=== PATIENT | female | born 1990 | race Two or more races ===

== ENCOUNTER 2016-10-25 18:07 | Emergency (ER) | payer MEDICAID ==
[2016-10-25 18:56] LABS: % BASOPHILS 0.7 % (0.0-2.0); % EOSINOPHILS 1.5 % (0.0-5.0); % LYMPHOCYTES 30.7 % (20.0-50.0); % MONOCYTES 8.1 % (2.0-10.0); HEMOGLOBIN 13.6 gm/dL (11.7-15.5); MEAN CELL VOLUME 89.8 fl (81-100); MEAN CORPUSCULAR HEMOGLOBIN 30.5 pg (27.0-31.0); MEAN PLATELET VOLUME 9.5 fl; NEUTROPHILE ABSOLUTE 4.7 Th/cmm (1.8-8.0); PLATELET COUNT 300 Th/cmm (150-400); RED BLOOD COUNT 4.46 Mil/cmm (3.80-5.10); RED CELL DISTRIBUTION WIDTH 12.5 % (11.5-20.0); WHITE BLOOD COUNT 8.1 Th/cmm (4.8-10.8)
[2016-10-25 19:00] LABS: URINE COLOR PALE YELLOW
[2016-10-25 19:01] LABS: URINE BILIRUBIN NEGATIVE (NEGATIVE); URINE BLOOD TRACE (NEGATIVE); URINE GLUCOSE (UA) NEGATIVE (NEGATIVE); URINE KETONE NEGATIVE (NEGATIVE); URINE PH 5.5; URINE PROTEIN NEGATIVE (NEGATIVE); URINE UROBILINOGEN 0.2 E.U./dL (0.2 - 1.0)
[2016-10-25 19:02] LABS: URINE BACTERIA FEW /hpf (NONE SEEN); URINE EPITHELIAL CELLS OCCASIONAL /lpf (FEW); URINE RBC 0-1 /hpf (0-5); URINE WBC 0-2 /hpf (0-5)
[2016-10-25 19:12] LABS: CHOLESTEROL 189 mg/dL (<200); TRIGLYCERIDES 126 mg/dL (<150)
[2016-10-25 19:14] LABS: ALB/GLOB RATIO 1.2 (1.0-1.8); ALKALINE PHOSPHATASE 52 U/L (34-104); ANION GAP 10.3 (7.0-16.0); BILIRUBIN,TOTAL 0.4 mg/dL (0.3-1.0); BUN - UREA NITROGEN 11 mg/dL (7-25); BUN/CREATININE RATIO 15.7; CALCIUM SERUM 9.2 mg/dL (8.6-10.3); CARBON DIOXIDE 23.4 mEq/L (21.0-31.0); CHLORIDE 106 mEq/L (98-107); CREATININE - SERUM 0.7 mg/dL (0.6-1.2); GLUCOSE 96 mg/dL (70-105); POTASSIUM SERUM 3.7 mEq/L (3.5-5.1); SGOT 15 U/L (13-39); SGPT/ALT 29 U/L (7-52); SODIUM SERUM 136 mEq/L (136-145)
--- NOTE | 2016-10-25 19:26 | ED Physician Chart ---
Chief Complaint/HPI - Patient Information Date Seen:: 10/25/16 Time Seen:: 18:20 Chief Complaint:: HEADACHE History of Present Illness:: THIS IS A 25 YO FEMALE WITH A SUDDEN ONSET OF A HEADACHE TODAY. THE PAIN IS ON THE LEFT SIDE AND RADIATES TO THE BACK OF THE HEAD. SHE DENIES ANY COUGH OR COLD SYMPTOMS. SHE STATES THAT SHE HAS HAD HEADACHES LIKE THIS BEFORE. 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 SHE DENIES NAUSEA AND VOMITING. SHE DENIES HAVING ANY FEVER. SHE DENIES SMOKING, DRINKING AND DRUG ABUSE. SHE DENIES AND PAINFUL URINATION. Allergies:: Allergies Allergy/AdvReac Type Severity Reaction Status Date / Time No Known Allergies Allergy Verified 10/25/16 18:20 Vitals:: Vital Signs - 8 hr 10/25/16 18:15 Temp 98.9 F HR 61 RR 16 BP 139/75 O2 Sat % 98 Historian:: Patient Review:: Nurse's Note Reviewed Review of Systems - Review of Systems General/Constitutional: No fever, No chills, No weight loss, No weakness, No diaphoresis, No edema, No loss of appetite Skin: No skin lesions, No rash, No bruising Head: No headache, No light-headedness Eyes: No loss of vision, No pain, No diplopia ENT: No earache, No nasal drainage, No sore throat, No tinnitus Neck: No neck pain, No swelling, No thyromegaly, No stiffness, No mass noted Cardio Vascular: No chest pain, No palpitations, No PND, No orthopnea, No edema Pulmonary: No SOB, No cough, No sputum, No wheezing GI: No nausea, No vomiting, No diarrhea, No pain, No melena, No hematochezia, No constipation, No hematemesis G/U: No dysuria, No frequency, No hematuria Musculoskeletal: No bone or joint pain, No back pain, No muscle pain Endocrine: No polyuria, No polydipsia Psychiatric: No prior psych history, No depression, No anxiety, No suicidal ideation Hematopoietic: No bruising, No lymphadenopathy Allergic/Immuno: No urticaria, No angioedema Neurological: No syncope, No focal symptoms, No weakness, No paresthesia, Headache, No seizure, No dizziness, No confusion, No vertigo Past Medical History - Past Medical History Obtainable: Yes Past Medical History: No significant medical hx, Other (MONTILLA'S PALSY) Family History: Diabetes Melitus (MOTHER) Surgical History: None Psychiatricy History: None Medication: Reviewed Family Medical History - Family Member Mother Ethnicity: Living Status: Still Living Hx Family Hypertension: Yes Father Hx Family Diabetes: Yes Physical Exam - Physical Examination General/Constitutional: Awake, Well-developed, well-nourished, Alert, No distress, GCS 15, Non-toxic appearing, Ambulatory Head: Atraumatic Eyes: Lids, conjuctiva normal, PERRL, EOMI Other Eyes comments:: MILD STRABISMUS RIGHT EYE Skin: Nl inspection, No rash, No skin lesions, No ecchymosis, Well hydrated, No lymphadenopathy ENMT: External ears, nose nl, Nasal exam nl, Lips, teeth, gums nl Neck: Nontender, Full ROM w/o pain, No JVD, No nuchal rigidity, No bruit, No mass, No stridor Respiratory: Nl effort/Exclusion, Clear to Auscultation, No Wheeze/Rhonchi/Rales Cardio Vascular: RRR, No murmur, gallop, rubs, NL S1 S2 GI: No tenderness/rebounding/guarding, No organomegaly, No hernia, Normal BS's, Nondistended, No mass/bruits, No McBurney tenderness : No CVA tenderness Extremities: No tenderness or effusion, Full ROM, normal strength in all extremities, No edema, Normal digits & nails Neuro/Psych: Alert/oriented, DTR's symmetric, Normal sensory exam, Normal motor strength, Judgement/insight normal, Mood normal, Normal gait, No focal deficits Misc: normal gait, Normal back, No paraspinal tenderness Labs/Radiology/EKG Results - Lab Results Results: Laboratory Tests 10/25/16 10/25/16 10/25/16 18:19 18:19 18:42 WBC RBC Hgb Hct MCV MCH MCHC Differential RDW Plt Count MPV Neutrophils % Lymphocytes % Monocytes % Eosinophils % Basophils % PTT (Actin FS) 28.2 Sodium Potassium Chloride Carbon Dioxide Anion Gap BUN Creatinine Est GFR ( Amer) Est GFR (Non-Af Amer) BUN/Creatinine Ratio Glucose Calcium Total Bilirubin AST ALT Alkaline Phosphatase Troponin I Total Protein Albumin Globulin Albumin/Globulin Ratio Triglycerides Cholesterol LDL Cholesterol Direct HDL Cholesterol Urine Source CLEAN C Urine Color PALE YELLOW Urine Clarity CLEAR Urine pH 5.5 Ur Specific [place] Urine Protein NEGATIVE Urine Glucose (UA) NEGATIVE Urine Ketones NEGATIVE Urine Blood TRACE Urine Nitrate NEGATIVE Urine Bilirubin NEGATIVE Urine Urobilinogen 0.2 Ur Leukocyte Esterase NEGATIVE Urine RBC 0-1 Urine WBC 0-2 Ur Epithelial Cells OCCASIONAL Urine Bacteria FEW Urine Test NEGATIVE 10/25/16 10/25/16 10/25/16 18:42 18:42 18:42 WBC 8.1 RBC 4.46 Hgb 13.6 Hct 40.0 MCV 89.8 MCH 30.5 MCHC Differential 34.0 RDW 12.5 Plt Count 300 MPV 9.5 Neutrophils % 59.0 Lymphocytes % 30.7 Monocytes % 8.1 Eosinophils % 1.5 Basophils % 0.7 PTT (Actin FS) Sodium 136 Potassium 3.7 Chloride 106 Carbon Dioxide 23.4 Anion Gap 10.3 BUN 11 Creatinine 0.7 Est GFR ( Amer) > 60.0 Est GFR (Non-Af Amer) > 60.0 BUN/Creatinine Ratio 15.7 Glucose 96 Calcium 9.2 Total Bilirubin 0.4 AST 15 ALT 29 Alkaline Phosphatase 52 Troponin I Total Protein 7.5 Albumin 4.1 Globulin 3.4 Albumin/Globulin Ratio 1.2 Triglycerides 126 Cholesterol 189 LDL Cholesterol Direct 139 HDL Cholesterol 41 Urine Source Urine Color Urine Clarity Urine pH Ur Specific [place] Urine Protein Urine Glucose (UA) Urine Ketones Urine Blood Urine Nitrate Urine Bilirubin Urine Urobilinogen Ur Leukocyte Esterase Urine RBC Urine WBC Ur Epithelial Cells Urine Bacteria Urine Test 10/25/16 18:42 WBC RBC Hgb Hct MCV MCH MCHC Differential RDW Plt Count MPV Neutrophils % Lymphocytes % Monocytes % Eosinophils % Basophils % PTT (Actin FS) Sodium Potassium Chloride Carbon Dioxide Anion Gap BUN Creatinine Est GFR ( Amer) Est GFR (Non-Af Amer) BUN/Creatinine Ratio Glucose Calcium Total Bilirubin AST ALT Alkaline Phosphatase Troponin I < 0.01 L Total Protein Albumin Globulin Albumin/Globulin Ratio Triglycerides Cholesterol LDL Cholesterol Direct HDL Cholesterol Urine Source Urine Color Urine Clarity Urine pH Ur Specific [place] Urine Protein Urine Glucose (UA) Urine Ketones Urine Blood Urine Nitrate Urine Bilirubin Urine Urobilinogen Ur Leukocyte Esterase Urine RBC Urine WBC Ur Epithelial Cells Urine Bacteria Urine Test - Radiology Results Results: CT SCAN OF THE HEAD = NEG ACUTE DISEASE ED Septic Shock - . Is Septic Shock (SBP<90, OR Lactate>4 mmol\L) present?: No - <6hrs of presentation: Vital Signs: Vital Signs - 8 hr 10/25/16 18:15 Temp 98.9 F HR 61 RR 16 BP 139/75 O2 Sat % 98 Reassessment (Disposition) - Reassessment Reassessment Condition:: Improved - Diagnosis Diagnosis:: HEADACHE - Aftercare/Follow up Instructions Aftercare/Follow-Up Instructions:: Counseled pt regarding lab results/diagnosis & need follow up, Refer to Discharge Instructions, Counseled pt & family regarding lab results/diagnosis & need follow up Notes:: SHE WAS REFERRED TO HER PMD OR TO THE [facility] FOR A MORE DETAIL NEUROLOGICAL EVALUATION. Medication Prescribed:: GABAPENTIN - Patient Disposition Discharge/Transfer:: Home Condition at Disposition:: Improved ED Discharge Plan - Patient Disposition Admit/Discharge/Transfer: PT DISCHARGED HOME Condition at Disposition: Improved
--- NOTE | 2016-10-26 08:50 | Diagnostic Imaging Report ---
CT scan of the brain without contrast History: Headache Total DLP equals 505 CTDI equals 31.4 Axial sections were obtained from the base of the skull to the vertex. There is a normal ventricular system size. No focal parenchymal lesions are seen. No evidence of any mass effect or shift of midline structures. No extra-axial masses or abnormal fluid collections. Impression: No acute abnormalities
== END 2016-10-25 19:30 | disposition home or self-care (01) ==
LOC: ER 18:07
DX: R51 Headache (principal)
CPT/HCPCS: 99285; 70450; 96372; 84484; 36415; 84443; 86592; 85025; 85730; 81001; 81025; 80053; 80061; J1885

== ENCOUNTER 2017-04-03 13:41 | Emergency (ER) | payer MEDICAID ==
--- NOTE | 2017-04-03 14:15 | ED Physician Chart ---
ED Chief Complaint/HPI - Patient Information Date Seen:: 04/03/17 Time Seen:: 13:54 Chief Complaint:: Abdominal pain for 4 days. History of Present Illness:: Brought in by private auto because of abdominal pain for 4 days. Pain is localized at epigastric region, characterized as sharp and intermittent. Pain can be aggravated with body movement and improved by lying down still. No fever. No N/V. Pt has had nonbloody loose stool with last BM at about 1 pm today. No melena or hematochezia. No lightheadedness. No recent travel, antibiotic use, or ingestion of contaminated food or liquid. Pt admits caffeine use and greasy/spicy food use. No ASA, NSAID's, tobacco or alcohol use. Allergies:: Allergies Allergy/AdvReac Type Severity Reaction Status Date / Time No Known Allergies Allergy Verified 10/25/16 18:20 Vitals:: Vital Signs - 8 hr 04/03/17 13:44 Temp 97.9 F HR 96 RR 16 BP 137/99 O2 Sat % 100 Historian:: Patient Family MD/PCP:: Unknown LMP:: 03/21/17 Review:: Nurse's Note Reviewed ED Review of Systems - Review of Systems General/Constitutional: No fever, No chills, No weight loss, No weakness, No diaphoresis, No edema, No loss of appetite Skin: No skin lesions, No rash, No bruising Head: No headache, No light-headedness Eyes: Acuity change, No loss of vision, No pain, No diplopia ENT: No earache, No nasal drainage, No sore throat Neck: No neck pain, No swelling, No thyromegaly, No stiffness, No mass noted Cardio Vascular: No chest pain, No palpitations, No edema Pulmonary: No SOB, No cough, No wheezing GI: No nausea, No vomiting, Diarrhea, Pain, No melena, No hematochezia, No hematemesis G/U: No dysuria, No frequency, No hematuria Public Relations Counselor: No vaginal discharge, No abnormal vaginal bleed Musculoskeletal: No bone or joint pain, No back pain, No muscle pain Endocrine: No polyuria, No polydipsia Psychiatric: No prior psych history Hematopoietic: No bruising, No lymphadenopathy Allergic/Immuno: No urticaria, No angioedema Neurological: No syncope, No focal symptoms, No weakness, No paresthesia, No headache, No dizziness, No confusion ED Past Medical History - Past Medical History Past Medical History: No significant medical hx Family History: Diabetes Melitus (father), HTN (mother) Social History: Non Smoker, No Alcohol, No Drug Use, Single, Lives With Parents , Employed Employment:: caregiver. Surgical History: None Psychiatricy History: None Medication: Reviewed Family Medical History - Family Member Mother Ethnicity: Living Status: Still Living Hx Family Hypertension: Yes Father Hx Family Diabetes: Yes ED Physical Exam - Physical Examination General/Constitutional: Awake, Well-developed, well-nourished, Alert, No distress, GCS 15, Non-toxic appearing, Ambulatory Other Gen/Cons comments:: Breathes comfortably, speaks clearly, ambulates without difficulty, and ambulates without difficulty. Head: Atraumatic Eyes: Lids, conjuctiva normal, PERRL, EOMI Other Eyes comments:: Anicteric sclera. Skin: Nl inspection, No rash, No skin lesions, No ecchymosis, Well hydrated, No lymphadenopathy ENMT: External ears, nose nl, Nasal exam nl, Lips, teeth, gums nl, Oropharynx nl Neck: Nontender, Full ROM w/o pain, No nuchal rigidity, No mass, No stridor Respiratory: Nl effort/Exclusion, Clear to Auscultation, No Wheeze/Rhonchi/Rales Cardio Vascular: RRR, No murmur, gallop, rubs GI: No organomegaly, No hernia, Normal BS's, Nondistended, No mass/bruits, No McBurney tenderness, Rectum exam nl (performed in the presence of female nurse Patricia. No mass. Stool is yellow.) Other GI comments:: Mild tenderness at epigastric region. No R/G. Negative Marr's sign, Ricardo's and Kee Pedroza's signs. : No CVA tenderness Extremities: No tenderness or effusion, Full ROM, normal strength in all extremities, No edema, Normal digits & nails Neuro/Psych: Alert/oriented (oriented x 3.), Judgement/insight normal, Mood normal, Normal gait, No focal deficits ED Labs/Radiology/EKG Results - Lab Results Results: Laboratory Tests 04/03/17 04/03/17 04/03/17 14:30 14:30 14:30 WBC 8.1 RBC 4.93 Hgb 15.0 Hct 44.5 D MCV 90.3 MCH 30.3 MCHC Differential 33.6 RDW 12.0 Plt Count 253 MPV 8.9 Neutrophils % 82.9 H Lymphocytes % 10.8 L Monocytes % 5.2 Eosinophils % 0.3 Basophils % 0.8 PT 11.1 INR 1.07 PTT (Actin FS) 27.7 Sodium 132 L Potassium 4.0 Chloride 104 Carbon Dioxide 25.6 Anion Gap 6.4 L BUN 11 Creatinine 0.7 Est GFR ( Amer) > 60.0 Est GFR (Non-Af Amer) > 60.0 BUN/Creatinine Ratio 15.7 Glucose 94 Calcium 9.0 Total Bilirubin 0.3 AST 18 ALT 18 Alkaline Phosphatase 53 Total Protein 7.3 Albumin 4.0 Globulin 3.3 Albumin/Globulin Ratio 1.2 Amylase 55 Lipase 21 Urine Source Urine Color Urine Clarity Urine pH Ur Specific [place] Urine Protein Urine Glucose (UA) Urine Ketones Urine Blood Urine Nitrate Urine Bilirubin Urine Urobilinogen Ur Leukocyte Esterase Urine RBC Urine WBC Ur Epithelial Cells Urine Bacteria Urine Test 04/03/17 04/03/17 15:35 15:35 WBC RBC Hgb Hct MCV MCH MCHC Differential RDW Plt Count MPV Neutrophils % Lymphocytes % Monocytes % Eosinophils % Basophils % PT INR PTT (Actin FS) Sodium Potassium Chloride Carbon Dioxide Anion Gap BUN Creatinine Est GFR ( Amer) Est GFR (Non-Af Amer) BUN/Creatinine Ratio Glucose Calcium Total Bilirubin AST ALT Alkaline Phosphatase Total Protein Albumin Globulin Albumin/Globulin Ratio Amylase Lipase Urine Source [place] Urine Color YELLOW Urine Clarity HAZY Urine pH 6.0 Ur Specific [place] 1.025 Urine Protein NEGATIVE Urine Glucose (UA) NEGATIVE Urine Ketones NEGATIVE Urine Blood SMALL H Urine Nitrate NEGATIVE Urine Bilirubin NEGATIVE Urine Urobilinogen 0.2 Ur Leukocyte Esterase MODERATE H Urine RBC 2-5 Urine WBC 10-25 H Ur Epithelial Cells MODERATE Urine Bacteria MODERATE Urine Test NEGATIVE Laboratory Last Values WBC 8.1 Th/cmm (4.8-10.8) 04/03/17 14:30 RBC 4.93 Mil/cmm (3.80-5.10) 04/03/17 14:30 Hgb 15.0 gm/dL (12-16) 04/03/17 14:30 Hct 44.5 % (41.0-60) D 04/03/17 14:30 MCV 90.3 fl (81-100) 04/03/17 14:30 MCH 30.3 pg (27.0-31.0) 04/03/17 14:30 MCHC Differential 33.6 pg (28.0-36.0) 04/03/17 14:30 RDW 12.0 % (11.5-20.0) 04/03/17 14:30 Plt Count 253 Th/cmm (150-400) 04/03/17 14:30 MPV 8.9 fl 04/03/17 14:30 Neutrophils % 82.9 % (40.0-80.0) H 04/03/17 14:30 Lymphocytes % 10.8 % (20.0-50.0) L 04/03/17 14:30 Monocytes % 5.2 % (2.0-10.0) 04/03/17 14:30 Eosinophils % 0.3 % (0.0-5.0) 04/03/17 14:30 Basophils % 0.8 % (0.0-2.0) 04/03/17 14:30 PT 11.1 SECONDS (9.5-11.5) 04/03/17 14:30 INR 1.07 (0.5-1.4) 04/03/17 14:30 PTT (Actin FS) 27.7 SECONDS (26.0-38.0) 04/03/17 14:30 Sodium 132 mEq/L (136-145) L 04/03/17 14:30 Potassium 4.0 mEq/L (3.5-5.1) 04/03/17 14:30 Chloride 104 mEq/L (98-107) 04/03/17 14:30 Carbon Dioxide 25.6 mEq/L (21.0-31.0) 04/03/17 14:30 Anion Gap 6.4 (7.0-16.0) L 04/03/17 14:30 BUN 11 mg/dL (7-25) 04/03/17 14:30 Creatinine 0.7 mg/dL (0.6-1.2) 04/03/17 14:30 Est GFR ( Amer) > 60.0 ml/min (>90) 04/03/17 14:30 Est GFR (Non-Af Amer) > 60.0 ml/min 04/03/17 14:30 BUN/Creatinine Ratio 15.7 04/03/17 14:30 Glucose 94 mg/dL (70-105) 04/03/17 14:30 Calcium 9.0 mg/dL (8.6-10.3) 04/03/17 14:30 Total Bilirubin 0.3 mg/dL (0.3-1.0) 04/03/17 14:30 AST 18 U/L (13-39) 04/03/17 14:30 ALT 18 U/L (7-52) 04/03/17 14:30 Alkaline Phosphatase 53 U/L (34-104) 04/03/17 14:30 Total Protein 7.3 gm/dL (6.0-8.3) 04/03/17 14:30 Albumin 4.0 gm/dL (3.7-5.3) 04/03/17 14:30 Globulin 3.3 gm/dL 04/03/17 14:30 Albumin/Globulin Ratio 1.2 (1.0-1.8) 04/03/17 14:30 Amylase 55 U/L (29-103) 04/03/17 14:30 Lipase 21 U/L (11-82) 04/03/17 14:30 Urine Source [place] 04/03/17 15:35 Urine Color YELLOW 04/03/17 15:35 Urine Clarity HAZY (CLEAR) 04/03/17 15:35 Urine pH 6.0 (4.6 - 8.0) 04/03/17 15:35 Ur Specific [place] 1.025 (1.005-1.030) 04/03/17 15:35 Urine Protein NEGATIVE mg/dL (NEGATIVE) 04/03/17 15:35 Urine Glucose (UA) NEGATIVE mg/dL (NEGATIVE) 04/03/17 15:35 Urine Ketones NEGATIVE mg/dL (NEGATIVE) 04/03/17 15:35 Urine Blood SMALL (NEGATIVE) H 04/03/17 15:35 Urine Nitrate NEGATIVE (NEGATIVE) 04/03/17 15:35 Urine Bilirubin NEGATIVE (NEGATIVE) 04/03/17 15:35 Urine Urobilinogen 0.2 E.U./dL (0.2 - 1.0) 04/03/17 15:35 Ur Leukocyte Esterase MODERATE (NEGATIVE) H 04/03/17 15:35 Urine RBC 2-5 /hpf (0-5) 04/03/17 15:35 Urine WBC 10-25 /hpf (0-5) H 04/03/17 15:35 Ur Epithelial Cells MODERATE /lpf (FEW) 04/03/17 15:35 Urine Bacteria MODERATE /hpf (NONE SEEN) 04/03/17 15:35 Urine Test NEGATIVE 04/03/17 15:35 ED Septic Shock - . Is Septic Shock (SBP<90, OR Lactate>4 mmol\L) present?: No - <6hrs of presentation: Vital Signs: Vital Signs - 8 hr 04/03/17 13:44 Temp 97.9 F HR 96 RR 16 BP 137/99 O2 Sat % 100 ED Reassessment (Disposition) - Reassessment Reassessment:: 1720 Pt has been repeatedly evaluated. Pt remains stable. No new complaint or findings. 0 Pt feels much better after IV hydration and medications given. Pt denies any definite abdominal pain. No lightheadedness. No N/V. Her loose stool has subsided. Lab findings have been reviewed with pt. Pt requests to go home now and does not want further observation/management in hospital. Aftercare instructions have been given. Reassessment Condition:: Improved - Diagnosis Diagnosis:: Acute gastritis with concurrent gastroenteritis, probably of viral in etiology. Stable. Urinary tract infection. Stable. - Aftercare/Follow up Instructions Aftercare/Follow-Up Instructions:: Refer to Discharge Instructions Notes:: Bedrest for today. Push clear liquid for now. Advance diet as tolerated starting tomorrow. N/V/D instructions given. Abdominal pain instructions given. Avoid greasy/spicy food, caffeine, alcohol, ASA, or NSAID's, etc. F/U with Dr. Lane or PCP of pt's choice in one day for recheck. Return to ER immediately if condition worsens or if any further questions/problems. Medication Prescribed:: Bactrim DS one tab po q12h for 7 days. D-14 R-0 Pt has been informed to use barrier method control in addition to OCP when taking antibiotic. Ranitidine 150 mg tab one tab po q12h as directed. D14 R-0 - Patient Disposition Discharge/Transfer:: Home Time:: 19:45 Condition at Disposition:: Stable, Improved ED Discharge Plan - Patient Disposition Admit/Discharge/Transfer: PT DISCHARGED HOME Condition at Disposition: Improved Instructions: Gastritis, Adult, [id number], Gastritis, Adult, Clear Liquid Diet, [id number], Urinary Tract Infection, Diarrhea, [id number] Additional Instructions: follow up with your primary medical doctor in 1-2 days if not feeling better take prescribed medications as ordered
[2017-04-03] MEDS ORDERED: Maalox 30 mL Cup PO ONE (14:24)
[2017-04-03] MEDS ORDERED: Sodium Chloride 0.9% 500 ML IV ONE (14:25)
[2017-04-03 14:38] LABS: % BASOPHILS 0.8 % (0.0-2.0); % EOSINOPHILS 0.3 % (0.0-5.0); % LYMPHOCYTES 10.8 % (20.0-50.0); % MONOCYTES 5.2 % (2.0-10.0); % NEUTROPHILS 82.9 % (40.0-80.0); MEAN CELL VOLUME 90.3 fl (81-100); MEAN CORPUSCULAR HEMOGLOBIN 30.3 pg (27.0-31.0); MEAN CORPUSCULAR HGB CONC 33.6 pg (28.0-36.0); MEAN PLATELET VOLUME 8.9 fl; NEUTROPHILE ABSOLUTE 6.7 Th/cmm (1.8-8.0); PLATELET COUNT 253 Th/cmm (150-400); RED BLOOD COUNT 4.93 Mil/cmm (3.80-5.10); WHITE BLOOD COUNT 8.1 Th/cmm (4.8-10.8)
[2017-04-03 14:49] LABS: HEMATOCRIT 44.5 % (41.0-60); INR 1.07 (0.5-1.4); PROTHROMBIN TIME (TEST) 11.1 SECONDS (9.5-11.5)
[2017-04-03 14:53] LABS: ALB/GLOB RATIO 1.2 (1.0-1.8); ALKALINE PHOSPHATASE 53 U/L (34-104); AMYLASE SERUM 55 U/L (29-103); ANION GAP 6.4 (7.0-16.0); BILIRUBIN,TOTAL 0.3 mg/dL (0.3-1.0); BUN - UREA NITROGEN 11 mg/dL (7-25); BUN/CREATININE RATIO 15.7; CARBON DIOXIDE 25.6 mEq/L (21.0-31.0); CHLORIDE 104 mEq/L (98-107); CREATININE - SERUM 0.7 mg/dL (0.6-1.2); GLUCOSE 94 mg/dL (70-105); LIPASE 21 U/L (11-82); SGOT 18 U/L (13-39); SGPT/ALT 18 U/L (7-52); SODIUM SERUM 132 mEq/L (136-145)
[2017-04-03] MEDS ORDERED: Maalox 30 mL Cup ONE (14:55)
[2017-04-03 16:00] LABS: URINE BILIRUBIN NEGATIVE (NEGATIVE); URINE BLOOD SMALL (NEGATIVE); URINE GLUCOSE (UA) NEGATIVE (NEGATIVE); URINE KETONE NEGATIVE (NEGATIVE); URINE PROTEIN NEGATIVE (NEGATIVE); URINE UROBILINOGEN 0.2 E.U./dL (0.2 - 1.0)
[2017-04-03 16:03] LABS: URINE COLOR YELLOW
[2017-04-03 16:04] LABS: URINE BACTERIA MODERATE /hpf (NONE SEEN); URINE EPITHELIAL CELLS MODERATE /lpf (FEW)
[2017-04-03] MEDS ORDERED: Sodium Chloride 0.9% 1,000 ML IV ONE (16:54)
== END 2017-04-03 19:45 | disposition home or self-care (01) ==
LOC: ER 13:41
DX: K29.00 Acute gastritis without bleeding (principal); N39.0 Urinary tract infection, site not specified
CPT/HCPCS: 99284; 96374; 36415; 85025; 85610; 87086; 81001; 82150; 81025; 83690; 80053; J3490; J7040; J7030; Z7502; Z7610

== ENCOUNTER 2018-08-11 14:53 | Emergency (ER) | payer MEDICAID ==
--- NOTE | 2018-08-11 15:22 | ED Physician Chart ---
ED Chief Complaint/HPI - Patient Information Date Seen:: 08/11/18 Time Seen:: 15:10 Chief Complaint:: right earache History of Present Illness:: this is a 27 yo female with right ear pain and fever over the last two days. the throat is not sore but she has some mild chest congestion without a cough. Allergies:: Allergies Allergy/AdvReac Type Severity Reaction Status Date / Time No Known Allergies Allergy Verified 10/25/16 18:20 Vitals:: Vital Signs - 8 hr 08/11/18 14:57 Temp 98.1 F HR 80 RR 16 BP 138/98 O2 Sat % 100 Historian:: Patient Review:: Nurse's Note Reviewed ED Review of Systems - Review of Systems General/Constitutional: No fever, No chills, No weight loss, No weakness, No diaphoresis, No edema, No loss of appetite Skin: No skin lesions, No rash, No bruising Head: No headache, No light-headedness Eyes: No loss of vision, No pain, No diplopia ENT: Earache, No nasal drainage, No sore throat, No tinnitus Neck: No neck pain, No swelling, No thyromegaly, No stiffness, No mass noted Cardio Vascular: No chest pain, No palpitations, No PND, No orthopnea, No edema Pulmonary: No SOB, No cough, No sputum, No wheezing GI: No nausea, No vomiting, No diarrhea, No pain, No melena, No hematochezia, No constipation, No hematemesis G/U: No dysuria, No frequency, No hematuria Musculoskeletal: No bone or joint pain, No back pain, No muscle pain Endocrine: No polyuria, No polydipsia Psychiatric: No prior psych history, No depression, No anxiety, No suicidal ideation Hematopoietic: No bruising, No lymphadenopathy Allergic/Immuno: No urticaria, No angioedema Neurological: No syncope, No focal symptoms, No weakness, No paresthesia, No headache, No seizure, No dizziness, No confusion, No vertigo ED Past Medical History - Past Medical History Obtainable: Yes Past Medical History: No significant medical hx Family History: None Social History: Non Smoker, No Alcohol, No Drug Use, Employed Surgical History: None Psychiatricy History: None Medication: Reviewed Family Medical History - Family Member Mother History Unknown: Yes Ethnicity: Living Status: Still Living Hx Family Hypertension: Yes Father History Unknown: Yes Living Status: Still Living Hx Family Diabetes: Yes ED Physical Exam - Physical Examination General/Constitutional: Awake, Well-developed, well-nourished, Alert, No distress, GCS 15, Non-toxic appearing, Ambulatory Head: Atraumatic Eyes: Lids, conjuctiva normal, PERRL, EOMI Skin: Nl inspection, No rash, No skin lesions, No ecchymosis, Well hydrated, No lymphadenopathy ENMT: External ears, nose nl, Nasal exam nl, Lips, teeth, gums nl Other ENMT comments:: there was swelling and redness with tenderness of the right ear canal. Neck: Nontender, Full ROM w/o pain, No JVD, No nuchal rigidity, No bruit, No mass, No stridor Respiratory: Nl effort/Exclusion, Clear to Auscultation, No Wheeze/Rhonchi/Rales Cardio Vascular: RRR, No murmur, gallop, rubs, NL S1 S2 GI: No tenderness/rebounding/guarding, No organomegaly, No hernia, Normal BS's, Nondistended, No mass/bruits, No McBurney tenderness : No CVA tenderness Extremities: No tenderness or effusion, Full ROM, normal strength in all extremities, No edema, Normal digits & nails Neuro/Psych: Alert/oriented, DTR's symmetric, Normal sensory exam, Normal motor strength, Judgement/insight normal, Mood normal, Normal gait, No focal deficits Misc: Normal back, No paraspinal tenderness ED Septic Shock - . Is Septic Shock (SBP<90, OR Lactate>4 mmol\L) present?: No - <6hrs of presentation: Vital Signs: Vital Signs - 8 hr 08/11/18 14:57 Temp 98.1 F HR 80 RR 16 BP 138/98 O2 Sat % 100 ED Reassessment (Disposition) - Diagnosis Diagnosis:: right otitis media - Aftercare/Follow up Instructions Aftercare/Follow-Up Instructions:: Counseled pt regarding lab results/diagnosis & need follow up, Refer to Discharge Instructions, Counseled pt & family regarding lab results/diagnosis & need follow up Medication Prescribed:: z-max, prednisone - Patient Disposition Discharge/Transfer:: Home
[2018-08-11 15:25] LABS: % BASOPHILS 0.2 % (0.0-2.0); % EOSINOPHILS 3.1 % (0.0-5.0); % LYMPHOCYTES 28.9 % (20.0-50.0); % MONOCYTES 8.2 % (2.0-10.0); % NEUTROPHILS 59.6 % (40.0-80.0); EOSINOPHILE ABSOLUTE 0.3 Th/cmm (0.1-0.4); HEMATOCRIT 39.6 % (41.0-60); HEMOGLOBIN 13.3 gm/dL (12-16); LYMPHOCYTE ABSOLUTE 2.4 Th/cmm (1.5-3.0); MEAN CELL VOLUME 89.4 fl (81-100); MEAN CORPUSCULAR HGB CONC 33.5 pg (28.0-36.0); MEAN PLATELET VOLUME 8.4 fl; MONOCYTE ABSOLUTE 0.7 Th/cmm (0.3-1.0); NEUTROPHILE ABSOLUTE 4.9 Th/cmm (1.8-8.0); PLATELET COUNT 404 Th/cmm (150-400); RED BLOOD COUNT 4.43 Mil/cmm (3.80-5.10); RED CELL DISTRIBUTION WIDTH 11.6 % (11.5-20.0); WHITE BLOOD COUNT 8.3 Th/cmm (4.8-10.8)
[2018-08-11 15:41] LABS: ALB/GLOB RATIO 1.2 (1.0-1.8); ALBUMIN 3.8 gm/dL (3.7-5.3); ALKALINE PHOSPHATASE 67 U/L (34-104); ANION GAP 11.5 (7.0-16.0); BILIRUBIN,TOTAL 0.2 mg/dL (0.3-1.0); BUN - UREA NITROGEN 19 mg/dL (7-25); CALCIUM SERUM 9.2 mg/dL (8.6-10.3); CARBON DIOXIDE 25.7 mEq/L (21.0-31.0); CHLORIDE 104 mEq/L (98-107); CREATININE - SERUM 0.7 mg/dL (0.6-1.2); GFR AFRICAN-AMERICAN > 60.0 ml/min (>90); GFR NON AFRICAN-AMERICAN > 60.0 ml/min; GLUCOSE 103 mg/dL (70-105); POTASSIUM SERUM 4.2 mEq/L (3.5-5.1); SGOT 16 U/L (13-39); SGPT/ALT 15 U/L (7-52); SODIUM SERUM 137 mEq/L (136-145); TOTAL PROTEIN,SERUM 6.9 gm/dL (6.0-8.3)
== END 2018-08-11 16:00 | disposition home or self-care (01) ==
LOC: ER 14:53
DX: H66.91 Otitis media, unspecified, right ear (principal)
CPT/HCPCS: 36415-UA; 80053-TC; 85025-TC; Z7502